=== PATIENT | male | born 2000 | race Caucasian/White ===

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

== ENCOUNTER 2022-01-01 12:29 | Emergency (ER) | payer BC, MEDICAID ==
[~2022-01-01] VITALS: Ht 165.1 cm; Wt 59.0 kg
[2022-01-01 12:37] VITALS: BP_SYST 125
--- NOTE | 2022-01-01 12:41 | NUR ---
Triaged pt and placed pt in waiting room until a bed becomes available. A&Ox4. VSS. Dr. Shah made aware.
--- NOTE | 2022-01-01 12:41 | NUR ---
Pt c/o epigastric pain that started last night and woke up this morning with worse pain and radiates to his lower chest. VSS. No sob and denies n/v. NKA Has hx of ASHD. Skin intact. Ambulatory with steady gait. Pupils PERRLA.
--- NOTE | 2022-01-01 13:00 | NUR ---
ER at bedside examining patient.
--- NOTE | 2022-01-01 15:40 | NUR ---
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
--- NOTE | 2022-01-01 15:50 | NUR ---
PT IS LEFT WITHOUT BEING SEEN
--- NOTE | 2022-01-01 15:50 | NUR ---
UNABLE TO LOCATE PT IN ER WAITING ROOM, PT LEFT WITHOUT BEING SEEN
[2022-01-01 17:32] VITALS: BP_SYST 148
== END 2022-01-01 17:32 | disposition left against medical advice (07) ==
LOC: SED 12:29
DX: R10.13 Epigastric pain (principal); Z53.21 Procedure and treatment not carried out due to patient leaving prior to being seen by health care provider